=== PATIENT | male | born 1970 | race Hispanic/Latino ===

== ENCOUNTER 2017-03-10 10:46 | Inpatient (IN) | payer MEDICARE ==
[~2017-03-10] VITALS: Ht 172.7 cm; Wt 83.3 kg
[2017-03-10 12:08] LABS: BASOPHILS % (AUTO) 1.2 % (0.0-5.0); HEMATOCRIT 30.8 % (42-54); LYMPHOCYTES % (AUTO) 18.9 % (21.0-51.0); MEAN CORPUSCULAR HEMOGLOBIN 29.8 pg (27.0-33.0); MEAN CORPUSCULAR HGB CONC 33.7 g/dL (32.0-36.0); MEAN CORPUSCULAR VOLUME 88.3 fL (79-99); MONOCYTES % (AUTO) 11.8 % (3.0-13.0); NEUTROPHILS % (AUTO) 65.1 % (40.0-77.0); NUCLEATED RED BLOOD CELLS 0.1 % (0.0-0.19); PLATELET COUNT (AUTO) 86 K/uL (130-400); RED BLOOD CELL COUNT(AUTO) 3.48 MIL/uL (4.50-6.20); RED CELL DISTRIBUTION WIDTH 15.1 % (11.0-15.5); WHITE BLOOD COUNT (AUTO) 2.6 K/uL (4.8-10.8)
[2017-03-10] MEDS ORDERED: DICYCLOMINE HCL 10 MG/ML 2ML AMP IM ONE (12:11)
[2017-03-10] MEDS ORDERED: LABETALOL HCL 5 MG/ML 20ML VIAL IV ONE (12:11)
[2017-03-10] MEDS ORDERED: FAMOTIDINE/PF 20 MG/2 ML VIAL IV ONE (12:11)
[2017-03-10 12:29] LABS: APPEARANCE,URINE Clear (CLEAR); BILIRUBIN,URINE Negative (NEGATIVE); COLOR,URINE Yellow (YELLOW); GLUCOSE, URINE (UA) 500 mg/dL (NEGATIVE); KETONES,URINE Trace mg/dL (NEGATIVE); LEUKOCYTE ESTERASE ,URINE Negative (NEGATIVE); NITRATE,URINE Negative (NEGATIVE); OCCULT BLOOD,URINE Negative (NEGATIVE); PH,URINE >=9.0 (5.0-8.0); PROTEIN,URINE 300 (NEGATIVE); UROBILINOGEN,URINE 0.2 mg/dL (0.2-1.0)
[2017-03-10 12:34] LABS: INR 1.02 (0.85-1.15); PARTIAL THROMBOPLASTIN TIME 26.6 SEC (26.3-35.5); PROTHROMBIN TIME 10.7 SEC (9.6-11.6)
[2017-03-10] MEDS ORDERED: HYDRALAZINE HCL 20 MG/ML VIAL ONE (12:42)
[2017-03-10 12:43] LABS: ALBUMIN 3.4 g/dL (3.5-5.0); CREATINE KINASE MB 0.5 ng/mL (0.5-3.6); POTASSIUM 3.8 mmol/L (3.5-5.1)
[2017-03-10 12:59] LABS: BACTERIA,URINE Rare /HPF (None Seen); MUCUS,URINE Few LPF (None Seen); RBC,URINE None Seen /HPF (0-1); SPERM,URINE Few /HPF (None Seen); SQUAMOUS EPITHELIAL CELL,UR Few /LPF (0-2); WBC,URINE 0-1 /HPF (0-1)
[2017-03-10] MEDS ORDERED: ONDANSETRON HCL 4 MG/2 ML VIAL ONE (16:15)
[2017-03-10] MEDS ORDERED: FUROSEMIDE 40 MG TABLET ONE (17:26)
[2017-03-10] MEDS ORDERED: HYDRALAZINE HCL 25 MG TABLET ONE ×2 (17:26→17:50)
[2017-03-10] MEDS ORDERED: LISINOPRIL 5 MG TABLET ONE (17:26)
[2017-03-10] MEDS ORDERED: CARVEDILOL 12.5 MG TABLET PO ONE (17:27)
[2017-03-10] MEDS ORDERED: NIFEDIPINE ER 30 MG TAB PO SCH (19:00)
[2017-03-10] MEDS ORDERED: NIFEDIPINE ER 30 MG TAB PO ONE (20:05)
[2017-03-11 06:05] LABS: HEMATOCRIT 27.4 % (42-54); MEAN CORPUSCULAR HEMOGLOBIN 30.6 pg (27.0-33.0); MEAN CORPUSCULAR HGB CONC 34.4 g/dL (32.0-36.0); NUCLEATED RED BLOOD CELLS 0.1 % (0.0-0.19); PLATELET COUNT (AUTO) 74 K/uL (130-400); RED BLOOD CELL COUNT(AUTO) 3.08 MIL/uL (4.50-6.20); RED CELL DISTRIBUTION WIDTH 15.1 % (11.0-15.5); WHITE BLOOD COUNT (AUTO) 2.9 K/uL (4.8-10.8)
[2017-03-11 06:12] LABS: CREATININE 7.3 mg/dL (0.5-1.5); POTASSIUM 3.3 mmol/L (3.5-5.1)
[2017-03-11 06:24] LABS: ALBUMIN 2.9 g/dL (3.5-5.0); BILIRUBIN,TOTAL 1.1 mg/dL (0.2-1.0); PHOSPHORUS 5.7 mg/dL (2.5-4.9); THYROID STIMULATING HORMONE 1.94 uIU/mL (0.36-3.74); URIC ACID 4.6 mg/dL (2.6-7.2)
[2017-03-11 07:09] LABS: BASOPHILS % (MANUAL) 1 % (0-2); EOSINOPHILS % (MANUAL) 5 % (1-6); LYMPHOCYTES % (MANUAL) 23 % (22-44); MAN.DIFF COMMENT-IMPRESSION MANUAL DIFFERENTIAL; MONOCYTES % (MANUAL) 7 % (2-9); SEGMENTED NEUTROPHILS % 64 % (40-70)
[2017-03-11 08:10] VITALS: BP 152/82
[2017-03-11] MEDS ORDERED: HYDR-4154 PO (09:01)
[2017-03-11] MEDS ORDERED: LISI40TA4 PO (09:01)
[2017-03-11] MEDS ORDERED: ASPI-555 PO (09:02)
[2017-03-11] MEDS ORDERED: CARV25TA PO (09:03)
[2017-03-11] MEDS ORDERED: GLIP5TAB11 PO (09:03)
[2017-03-11] MEDS ORDERED: HYDROXYZINE HCL 25 MG TABLET PO PRN (09:15)
[2017-03-11] MEDS ORDERED: NIFE60TA81 PO (09:16)
[2017-03-11] MEDS ORDERED: FURO-151 PO (09:20)
[2017-03-11] MEDS ORDERED: HYDR-3421 PO (09:20)
[2017-03-11] MEDS ORDERED: SEVE800T7 PO (09:25)
[2017-03-11] MEDS ORDERED: PRAS10TA6 PO (09:25)
[2017-03-11] MEDS ORDERED: DEXTROSE 50%-WATER 50 ML DISP.SYRIN IV PRN (11:00)
[2017-03-11] MEDS ORDERED: ONDANSETRON HCL 4 MG/2 ML VIAL IVP PRN (11:00)
[2017-03-11] MEDS ORDERED: ACETAMINOPHEN 325 MG TAB PO PRN (11:00)
[2017-03-11] MEDS ORDERED: GLUCAGON 1MG KIT 1 MG ML IM PRN (11:00)
[2017-03-11] MEDS: SEVELAMER HCL 800 MG TABLET PO SCH ×2 (11:19→17:09)
[2017-03-11] MEDS: INSULIN R PO SS1 SQ SCH ×3 (11:30→21:00)
[2017-03-11 12:00] VITALS: BP 158/77
[2017-03-11] MEDS ORDERED: ALBUMIN (HUMAN) 25% 100 ML IV PRN (13:30)
[2017-03-11] MEDS ORDERED: SODIUM CHLORIDE 0.9% 1000ML 1,000 ML IV PRN (13:30)
[2017-03-11] MEDS ORDERED: 0.9% SODIUM CHLORIDE 250 ML IV BAG IV PRN (13:30)
[2017-03-11] MEDS: EPOETIN ALFA 10,000 UNIT/ML VIAL SQ SCH (14:03)
[2017-03-11] MEDS: HYDRALAZINE HCL 25 MG TABLET PO SCH ×2 (14:05→22:21)
[2017-03-11] MEDS: EPOETIN ALFA 2,000 UNIT/ML VIAL SQ NR (14:08)
[2017-03-11 16:00] VITALS: BP 173/73
[2017-03-11] MEDS: EPOETIN ALFA 3,000 UNIT/ML ML SQ NR (17:35)
[2017-03-11 19:46] VITALS: BP 157/85
[2017-03-11] MEDS: CARVEDILOL 25 MG TABLET PO SCH (21:00)
[2017-03-11] MEDS ORDERED: CARVEDILOL 25 MG TABLET PO SCH (21:00)
[2017-03-11] MEDS ORDERED: HYDRALAZINE HCL 25 MG TABLET PO SCH (21:00)
[2017-03-11] MEDS: GLIPIZIDE 5 MG TABLET PO SCH (22:19)
[2017-03-11] MEDS: LISINOPRIL 40 MG TABLET PO SCH (23:19)
[2017-03-11 23:32] VITALS: BP 179/82
[2017-03-12] VITALS (7 sets, daily range): BP systolic 162–203; BP diastolic 78–99
[2017-03-12] MEDS ORDERED: LABETALOL HCL 5 MG/ML 20ML VIAL IV ONE (04:04)
[2017-03-12] MEDS: LABETALOL HCL 5 MG/ML 20ML VIAL IV PRN ×2 (04:12→12:01)
[2017-03-12 04:50] LABS: HEMATOCRIT 25.7 % (42-54); MEAN CORPUSCULAR HGB CONC 34.3 g/dL (32.0-36.0); MEAN CORPUSCULAR VOLUME 87.5 fL (79-99); NUCLEATED RED BLOOD CELLS 0.1 % (0.0-0.19); PLATELET COUNT (AUTO) 82 K/uL (130-400); RED BLOOD CELL COUNT(AUTO) 2.94 MIL/uL (4.50-6.20); RED CELL DISTRIBUTION WIDTH 15.3 % (11.0-15.5); WHITE BLOOD COUNT (AUTO) 3.4 K/uL (4.8-10.8)
[2017-03-12 04:58] LABS: BAND NEUTROPHILS % (MANUAL) 6 % (0-2); BASOPHILS % (MANUAL) 2 % (0-2); EOSINOPHILS % (MANUAL) 12 % (1-6); LYMPHOCYTES % (MANUAL) 16 % (22-44); MAN.DIFF COMMENT-IMPRESSION MANUAL DIFFERENTIAL; MONOCYTES % (MANUAL) 6 % (2-9); PLATELET MORPHOLOGY COMMENT DECREASED; SEGMENTED NEUTROPHILS % 58 % (40-70)
[2017-03-12 05:09] LABS: ALBUMIN 2.8 g/dL (3.5-5.0); BILIRUBIN,TOTAL 0.9 mg/dL (0.2-1.0); CREATININE 5.3 mg/dL (0.5-1.5); MAGNESIUM 1.9 mg/dL (1.80-2.40); PHOSPHORUS 3.9 mg/dL (2.5-4.9); POTASSIUM 3.2 mmol/L (3.5-5.1); TOTAL PROTEIN, SERUM 5.8 g/dL (6.0-8.3)
[2017-03-12] MEDS: INSULIN R PO SS1 SQ SCH ×4 (06:13→21:00)
[2017-03-12] MEDS: PANTOPRAZOLE SODIUM 40 MG TABLET.DR PO SCH (06:40)
[2017-03-12] MEDS: HYDRALAZINE HCL 25 MG TABLET PO SCH ×2 (07:04→22:24)
[2017-03-12] MEDS: PRASUGREL HCL 10 MG TABLET PO SCH (08:29)
[2017-03-12] MEDS: GLIPIZIDE 5 MG TABLET PO SCH ×2 (08:30→21:00)
[2017-03-12] MEDS: CARVEDILOL 25 MG TABLET PO SCH ×2 (08:30→22:25)
[2017-03-12] MEDS: SEVELAMER HCL 800 MG TABLET PO SCH ×3 (08:30→17:38)
[2017-03-12] MEDS: FUROSEMIDE 40 MG TABLET PO SCH (08:30)
[2017-03-12] MEDS: ASPIRIN 81 MG EC TAB PO SCH (08:30)
[2017-03-12] MEDS: NIFEDIPINE ER 30 MG TAB PO SCH (08:31)
[2017-03-12] MEDS: LISINOPRIL 40 MG TABLET PO SCH (08:31)
[2017-03-12] MEDS: EPOETIN ALFA 10,000 UNIT/ML VIAL SQ SCH (15:00)
[2017-03-12] MEDS: EPOETIN ALFA 3,000 UNIT/ML ML SQ NR (15:09)
[2017-03-12] MEDS: EPOETIN ALFA 2,000 UNIT/ML VIAL SQ NR (15:09)
[2017-03-13] VITALS (7 sets, daily range): BP systolic 151–176; BP diastolic 74–92
[2017-03-13] MEDS: LISINOPRIL 40 MG TABLET PO SCH ×3 (00:24→22:30)
[2017-03-13 03:21] LABS: HEMATOCRIT 26.9 % (42-54); MEAN CORPUSCULAR HEMOGLOBIN 31.1 pg (27.0-33.0); MEAN CORPUSCULAR HGB CONC 35.4 g/dL (32.0-36.0); NUCLEATED RED BLOOD CELLS 0.1 % (0.0-0.19); PLATELET COUNT (AUTO) 83 K/uL (130-400); RED BLOOD CELL COUNT(AUTO) 3.06 MIL/uL (4.50-6.20); RED CELL DISTRIBUTION WIDTH 14.9 % (11.0-15.5); WHITE BLOOD COUNT (AUTO) 3.1 K/uL (4.8-10.8)
[2017-03-13 03:52] LABS: CREATININE 7.5 mg/dL (0.5-1.5); POTASSIUM 3.1 mmol/L (3.5-5.1)
[2017-03-13 04:12] LABS: BAND NEUTROPHILS % (MANUAL) 2 % (0-2); EOSINOPHILS % (MANUAL) 10 % (1-6); LYMPHOCYTES % (MANUAL) 20 % (22-44); MONOCYTES % (MANUAL) 16 % (2-9); SEGMENTED NEUTROPHILS % 52 % (40-70)
[2017-03-13 04:13] LABS: MAN.DIFF COMMENT-IMPRESSION MANUAL DIFFERENTIAL; PLATELET MORPHOLOGY COMMENT DECREASED
[2017-03-13] MEDS: INSULIN R PO SS1 SQ SCH ×4 (05:48→21:00)
[2017-03-13] MEDS: PANTOPRAZOLE SODIUM 40 MG TABLET.DR PO SCH (06:16)
[2017-03-13] MEDS: SEVELAMER HCL 800 MG TABLET PO SCH ×3 (07:52→17:09)
[2017-03-13] MEDS: CARVEDILOL 25 MG TABLET PO SCH ×2 (07:53→22:31)
[2017-03-13] MEDS: PRASUGREL HCL 10 MG TABLET PO SCH (07:53)
[2017-03-13] MEDS: ASPIRIN 81 MG EC TAB PO SCH (07:53)
[2017-03-13] MEDS: HYDRALAZINE HCL 25 MG TABLET PO SCH ×2 (07:53→22:36)
[2017-03-13] MEDS: GLIPIZIDE 5 MG TABLET PO SCH ×3 (07:54→22:31)
[2017-03-13] MEDS: NIFEDIPINE ER 30 MG TAB PO SCH (07:54)
[2017-03-13] MEDS: FUROSEMIDE 40 MG TABLET PO SCH (07:54)
[2017-03-13] MEDS ORDERED: EPOETIN ALFA 2,000 UNIT/ML VIAL SQ ONE (23:00)
[2017-03-13] MEDS ORDERED: EPOETIN ALFA 10,000 UNIT/ML VIAL SQ ONE (23:00)
[2017-03-14 04:09] VITALS: BP 163/81
[2017-03-14 04:35] LABS: HEMATOCRIT 26.9 % (42-54); MEAN CORPUSCULAR HEMOGLOBIN 30.1 pg (27.0-33.0); MEAN CORPUSCULAR HGB CONC 34.4 g/dL (32.0-36.0); MEAN CORPUSCULAR VOLUME 87.5 fL (79-99); NUCLEATED RED BLOOD CELLS 0.1 % (0.0-0.19); PLATELET COUNT (AUTO) 89 K/uL (130-400); RED BLOOD CELL COUNT(AUTO) 3.08 MIL/uL (4.50-6.20); RED CELL DISTRIBUTION WIDTH 14.8 % (11.0-15.5); WHITE BLOOD COUNT (AUTO) 2.5 K/uL (4.8-10.8)
[2017-03-14 05:03] LABS: CREATININE 5.5 mg/dL (0.5-1.5); MAGNESIUM 1.9 mg/dL (1.80-2.40); PHOSPHORUS 3.4 mg/dL (2.5-4.9); POTASSIUM 3.4 mmol/L (3.5-5.1)
[2017-03-14 05:20] LABS: % IRON SATURATION 12.1 % (30-44)
[2017-03-14] MEDS: SEVELAMER HCL 800 MG TABLET PO SCH ×3 (06:06→16:34)
[2017-03-14] MEDS: INSULIN R PO SS1 SQ SCH ×4 (06:06→20:31)
[2017-03-14] MEDS: PANTOPRAZOLE SODIUM 40 MG TABLET.DR PO SCH (06:06)
[2017-03-14] MEDS: CARVEDILOL 25 MG TABLET PO SCH ×2 (07:28→20:04)
[2017-03-14] MEDS: FUROSEMIDE 40 MG TABLET PO SCH (07:28)
[2017-03-14] MEDS: HYDRALAZINE HCL 25 MG TABLET PO SCH ×2 (07:28→20:03)
[2017-03-14] MEDS: ASPIRIN 81 MG EC TAB PO SCH (07:28)
[2017-03-14] MEDS: LISINOPRIL 40 MG TABLET PO SCH ×2 (07:29→20:03)
[2017-03-14] MEDS: GLIPIZIDE 5 MG TABLET PO SCH ×2 (07:29→20:03)
[2017-03-14] MEDS: PRASUGREL HCL 10 MG TABLET PO SCH (07:29)
[2017-03-14] MEDS: NIFEDIPINE ER 30 MG TAB PO SCH (07:29)
[2017-03-14 07:51] VITALS: BP 184/89
[2017-03-14 11:14] VITALS: BP 179/80
[2017-03-14] MEDS ORDERED: NIFEDIPINE 10 MG CAP PO SCH (13:45)
[2017-03-14 15:29] LABS: CREATINE KINASE MB < 0.5 ng/mL (0.5-3.6); CREATINE KINASE, TOTAL 22 U/L (21-232); MYOGLOBIN 177 ng/mL (10-92); TROPONIN I < 0.04 ng/mL (0.00-0.06)
[2017-03-14 16:37] VITALS: BP 136/66
[2017-03-14 19:55] VITALS: BP 131/69
[2017-03-14 22:42] LABS: CREATINE KINASE MB < 0.5 ng/mL (0.5-3.6); CREATINE KINASE, TOTAL 26 U/L (21-232); MYOGLOBIN 172 ng/mL (10-92); TROPONIN I < 0.04 ng/mL (0.00-0.06)
[2017-03-14 23:06] VITALS: BP 147/72
[2017-03-15 04:01] VITALS: BP 136/68
[2017-03-15] MEDS: SEVELAMER HCL 800 MG TABLET PO SCH ×3 (06:05→16:48)
[2017-03-15] MEDS: PANTOPRAZOLE SODIUM 40 MG TABLET.DR PO SCH (06:05)
[2017-03-15] MEDS: INSULIN R PO SS1 SQ SCH ×4 (06:16→20:56)
[2017-03-15 07:00] VITALS: BP 163/74
[2017-03-15] MEDS: PRASUGREL HCL 10 MG TABLET PO SCH (07:36)
[2017-03-15] MEDS: NIFEDIPINE ER 30 MG TAB PO SCH (07:36)
[2017-03-15] MEDS: FUROSEMIDE 40 MG TABLET PO SCH (07:36)
[2017-03-15] MEDS: LISINOPRIL 40 MG TABLET PO SCH ×2 (07:36→20:00)
[2017-03-15] MEDS: GLIPIZIDE 5 MG TABLET PO SCH ×4 (07:36→20:01)
[2017-03-15] MEDS: CARVEDILOL 25 MG TABLET PO SCH ×2 (07:36→20:00)
[2017-03-15] MEDS: ASPIRIN 81 MG EC TAB PO SCH (07:36)
[2017-03-15] MEDS: HYDRALAZINE HCL 25 MG TABLET PO SCH ×2 (07:37→20:00)
[2017-03-15 08:34] LABS: CREATINE KINASE MB < 0.5 ng/mL (0.5-3.6); CREATINE KINASE, TOTAL 23 U/L (21-232); MYOGLOBIN 146 ng/mL (10-92); TROPONIN I < 0.04 ng/mL (0.00-0.06)
[2017-03-15 11:40] VITALS: BP 166/81
[2017-03-15 16:00] VITALS: BP 158/75
[2017-03-15 19:43] VITALS: BP 162/85
[2017-03-15 23:32] VITALS: BP 151/75
[2017-03-16 03:58] VITALS: BP 155/74
[2017-03-16 04:30] LABS: HEMATOCRIT 26.1 % (42-54); MEAN CORPUSCULAR HEMOGLOBIN 29.7 pg (27.0-33.0); MEAN CORPUSCULAR VOLUME 87.5 fL (79-99); PLATELET COUNT (AUTO) 78 K/uL (130-400); RED BLOOD CELL COUNT(AUTO) 2.99 MIL/uL (4.50-6.20)
[2017-03-16 04:39] LABS: POTASSIUM 3.7 mmol/L (3.5-5.1)
[2017-03-16 05:09] LABS: CREATININE 9.1 mg/dL (0.5-1.5)
[2017-03-16] MEDS: INSULIN R PO SS1 SQ SCH ×4 (06:13→20:53)
[2017-03-16] MEDS: PANTOPRAZOLE SODIUM 40 MG TABLET.DR PO SCH (06:21)
[2017-03-16] MEDS: SEVELAMER HCL 800 MG TABLET PO SCH ×3 (06:21→17:00)
[2017-03-16 07:00] VITALS: BP 161/71
[2017-03-16] MEDS: NIFEDIPINE ER 30 MG TAB PO SCH (09:00)
[2017-03-16] MEDS: FUROSEMIDE 40 MG TABLET PO SCH (09:00)
[2017-03-16] MEDS: PRASUGREL HCL 10 MG TABLET PO SCH (09:00)
[2017-03-16] MEDS: ASPIRIN 81 MG EC TAB PO SCH (09:00)
[2017-03-16] MEDS: GLIPIZIDE 5 MG TABLET PO SCH ×2 (09:00→20:52)
[2017-03-16] MEDS: HYDRALAZINE HCL 25 MG TABLET PO SCH ×2 (09:00→20:42)
[2017-03-16] MEDS: CARVEDILOL 25 MG TABLET PO SCH ×2 (09:00→20:42)
[2017-03-16] MEDS: LISINOPRIL 40 MG TABLET PO SCH ×2 (09:00→20:42)
[2017-03-16 11:00] VITALS: BP 160/86
[2017-03-16] MEDS ORDERED: EPOETIN ALFA 3,000 UNIT/ML ML SQ NR (15:00)
[2017-03-16] MEDS ORDERED: EPOETIN ALFA 2,000 UNIT/ML VIAL SQ NR ×2 (15:00→21:00)
[2017-03-16] MEDS ORDERED: EPOETIN ALFA 10,000 UNIT/ML VIAL SQ SCH ×2 (15:00→21:00)
[2017-03-16 16:00] VITALS: BP 182/68
[2017-03-16 20:01] VITALS: BP 173/78
[2017-03-16 23:42] VITALS: BP 184/88
[2017-03-17 03:55] VITALS: BP 196/95
[2017-03-17 04:39] LABS: HEMATOCRIT 26.2 % (42-54); MEAN CORPUSCULAR HEMOGLOBIN 29.9 pg (27.0-33.0); MEAN CORPUSCULAR HGB CONC 34.2 g/dL (32.0-36.0); MEAN CORPUSCULAR VOLUME 87.5 fL (79-99); NUCLEATED RED BLOOD CELLS 0.1 % (0.0-0.19); PLATELET COUNT (AUTO) 77 K/uL (130-400); RED CELL DISTRIBUTION WIDTH 15.2 % (11.0-15.5)
[2017-03-17 04:57] LABS: POTASSIUM 4.1 mmol/L (3.5-5.1)
[2017-03-17] MEDS ORDERED: LABETALOL HCL 5 MG/ML 20ML VIAL IV ONE (05:02)
[2017-03-17 05:08] VITALS: BP 191/93
[2017-03-17] MEDS: LABETALOL HCL 5 MG/ML 20ML VIAL IV PRN ×2 (05:08→06:25)
[2017-03-17] MEDS: INSULIN R PO SS1 SQ SCH (05:50)
[2017-03-17 06:15] VITALS: BP 203/97
[2017-03-17] MEDS: HYDRALAZINE HCL 25 MG TABLET PO SCH (06:23)
[2017-03-17] MEDS: SEVELAMER HCL 800 MG TABLET PO SCH ×2 (06:36→11:03)
[2017-03-17] MEDS: PANTOPRAZOLE SODIUM 40 MG TABLET.DR PO SCH (06:36)
[2017-03-17 07:46] VITALS: BP 204/97
[2017-03-17] MEDS: CARVEDILOL 25 MG TABLET PO SCH (08:59)
[2017-03-17] MEDS: FUROSEMIDE 40 MG TABLET PO SCH (09:00)
[2017-03-17] MEDS: ASPIRIN 81 MG EC TAB PO SCH (09:00)
[2017-03-17] MEDS: GLIPIZIDE 5 MG TABLET PO SCH (09:00)
[2017-03-17] MEDS: NIFEDIPINE ER 30 MG TAB PO SCH (09:00)
[2017-03-17] MEDS: LISINOPRIL 40 MG TABLET PO SCH (09:00)
[2017-03-17] MEDS: PRASUGREL HCL 10 MG TABLET PO SCH (09:01)
[2017-03-17 11:21] VITALS: BP 191/97
[2017-03-17] MEDS ORDERED: NIFE90TA38 PO (13:08)
[2017-03-17] MEDS ORDERED: HYDR25 PO (13:08)
== END 2017-03-17 13:45 | disposition home or self-care (01) | DRG 304 ==
LOC: EDH 10:46 → EDHIP 14:39 → 2CH 03-11 08:03 → 2DH 03-11 18:22
PROVIDERS: ADMIT Internal Medicine Nephrology; ATTEND Internal Medicine Nephrology
PROC: 5A1D70Z Performance of Urinary Filtration, Intermittent, Less than 6 Hours Per Day (ICD-10-PCS; principal; 2017-03-11)
PROC: 5A1D70Z Performance of Urinary Filtration, Intermittent, Less than 6 Hours Per Day (ICD-10-PCS; 2017-03-13)
PROC: 5A1D70Z Performance of Urinary Filtration, Intermittent, Less than 6 Hours Per Day (ICD-10-PCS; 2017-03-16)
DX: I16.1 Hypertensive emergency (principal); N18.6 End stage renal disease; D69.6 Thrombocytopenia, unspecified; E11.21 Type 2 diabetes mellitus with diabetic nephropathy; E11.51 Type 2 diabetes mellitus with diabetic peripheral angiopathy without gangrene; E11.22 Type 2 diabetes mellitus with diabetic chronic kidney disease; I42.9 Cardiomyopathy, unspecified; I12.0 Hypertensive chronic kidney disease with stage 5 chronic kidney disease or end stage renal disease; I25.10 Atherosclerotic heart disease of native coronary artery without angina pectoris; K74.60 Unspecified cirrhosis of liver; D72.819 Decreased white blood cell count, unspecified; D64.9 Anemia, unspecified; E87.5 Hyperkalemia; I08.1 Rheumatic disorders of both mitral and tricuspid valves; Z91.19 Patient's noncompliance with other medical treatment and regimen; Z95.1 Presence of aortocoronary bypass graft; Z95.5 Presence of coronary angioplasty implant and graft; Z99.2 Dependence on renal dialysis
CPT/HCPCS: 36415; 76700; 80048; 80053; 81001; 82140; 82550; 82553; 82728; 82948; 83540; 83550; 83690; 83735; 83874; 84100; 84443; 84484; 84550; 85025; 85027; 85610; 85730; 90935; 93005; 93306; J0360; J0500; J0885; J2405; J3490; J7030